=== PATIENT | male | born 1995 | race African-American/Black ===

== ENCOUNTER 2024-02-03 23:47 | Emergency (ER) | payer MEDICAID ==
[~2024-02-03] VITALS: Ht 170.2 cm; Wt 70.9 kg
[2024-02-04] MEDS: HYDROcodone-ACET 5/325MG TAB PO ONE (00:28)
[2024-02-04 01:00] VITALS: BP 110/80; PULSE 70; RESP 20; TEMP 98.7; O2SAT 100
== END 2024-02-04 01:03 | disposition home or self-care (01) ==
LOC: ER 23:47
DX: S60.212A Contusion of left wrist, initial encounter (principal); W18.39XA Other fall on same level, initial encounter; Y93.61 Activity, american tackle football; Y92.321 Football field as the place of occurrence of the external cause; Y99.8 Other external cause status
CPT/HCPCS: 29125; 73110

== ENCOUNTER 2024-04-02 02:54 | Emergency (ER) | payer MEDICAID ==
[~2024-04-02] VITALS: Ht 170.2 cm; Wt 73.1 kg
[2024-04-02 03:23] VITALS: BP 92/53; PULSE 75; RESP 18; TEMP 98.2; O2SAT 99
[2024-04-02] MEDS: TETANUS-DIPTH-ACEL PERTUSSIS 0.5ML SYR Tdap IM ONE (04:00)
== END 2024-04-02 04:04 | disposition home or self-care (01) ==
LOC: ER 02:54
DX: S61.302A Unspecified open wound of right middle finger with damage to nail, initial encounter (principal); W23.0XXA Caught, crushed, jammed, or pinched between moving objects, initial encounter; Y93.89 Activity, other specified; Y92.89 Other specified places as the place of occurrence of the external cause; Y99.8 Other external cause status
CPT/HCPCS: 73140; 90471; 90715